=== PATIENT | male | born 1955 | race American Indian/Alaskan Native ===

== ENCOUNTER 2018-10-17 13:40 | Day surgery (SDC) | payer MEDICARE, MEDICAID ==
[~2018-10-17] VITALS: Ht 167.6 cm; Wt 86.4 kg
[~2018-10-17 13:40] MED LIST: ACET-2119 PO; ALBU8HFA PO; ATOR20TA66 PO; CALC0.253 PO; CALC600T12 PO; CETI-102 PO; COL0.6T PO; DIPH25CA83 PO; FAMO40TA7 PO; GABA-532 PO; GLIM2TAB2 PO; HYDR12.5 PO; LACT10SO PO; LANTUS SUBCUT; LEDI1TAB; LEVO200T PO; LISI-600 PO; MAGNESIUM PO; METF1000 PO; METO50TA7 PO; MONT10TA21 PO; PIOG45TA5 PO; RIBA200C13; vitamin e PO
[2018-10-17 13:55] VITALS: BP 162/77
[2018-10-17] MEDS ORDERED: LIDOcaine Viscous 15ml cup ONE (14:42)
[2018-10-17] MEDS ORDERED: MIDAZolam 5mg/5ml vial ONE ×2 (14:42→14:51)
[2018-10-17] MEDS ORDERED: fentaNYL/PF 50MCG/1 ML 2ML syringe ONE ×2 (14:42→14:51)
[2018-10-17 15:04] VITALS: BP 136/77
[2018-10-17 15:14] VITALS: BP 134/83
[2018-10-17 15:24] VITALS: BP 121/71
[2018-10-17 15:34] VITALS: BP 110/77
== END 2018-10-17 15:45 | disposition home or self-care (01) ==
LOC: GI LAB 13:40
PROVIDERS: ATTEND Internal Medicine Gastroenterology
DX: I85.00 Esophageal varices without bleeding (principal); K76.6 Portal hypertension; K31.89 Other diseases of stomach and duodenum
CPT/HCPCS: 43235; J2250; J3010; J7030; 99152; A4620

== ENCOUNTER 2021-04-07 11:05 | Outpatient (CLI) | payer MEDICARE, MEDICAID ==
[~2021-04-07 11:05] MED LIST changes: -CALC600T12 PO; +CALC600T35 PO; -CETI-102 PO; +CETI-90 PO; -GLIM2TAB2 PO; +GLIM2TAB6 PO; -LACT10SO PO; +LACT10SO3 PO; -LISI-600 PO; +LISI20TA28 PO; -RIBA200C13; +[UNRECOGNIZED DRUG - CODE]
== END 2021-04-07 23:59 | disposition home or self-care (01) ==
LOC: RAD 11:05
PROVIDERS: ATTEND Psychiatry & Neurology Neurology
DX: H81.10 Benign paroxysmal vertigo, unspecified ear (principal); E11.42 Type 2 diabetes mellitus with diabetic polyneuropathy; G40.909 Epilepsy, unspecified, not intractable, without status epilepticus
CPT/HCPCS: 95816